=== PATIENT | female | born 1950 | race African-American/Black ===

== ENCOUNTER 2018-07-04 04:41 | Emergency (ER) | payer MEDICARE, MEDICAID ==
[~2018-07-04] VITALS: Ht 167.6 cm; Wt 77.1 kg
[~2018-07-04 04:41] MED LIST: AMLODIPINE BESYL5 MG ORAL; AMPICILLIN TRI500 MG; ASPIRIN EC81 MG; BACTRIM DS TAB1 EAC1 ORAL; CLONAZEPAM2 MG; CLONAZEPAM2 MG PO; CLONIDINE 0.2M0.2 MG; CLONIDINE 0.2M0.2 MG PO; CLONIDINE HCL0.1 MG; DOCUSATE SODIU100 MG; HYDROCODON-ACE1 EA15 ORAL; HYDROCODON-ACE1 EAC8; KEFLEX500 MG ORAL; ZOFRAN4 M1 ORAL
[2018-07-04 04:49] VITALS: BP 187/91
[2018-07-04 04:50] VITALS: BP 187/91
[2018-07-04] MEDS ORDERED: Cephalexin 500mg cap ORAL ONE (05:45)
[2018-07-04] MEDS ORDERED: Bactrim-DS 1 tab ORAL ONE (05:45)
[2018-07-04] MEDS ORDERED: CEPHALEXIN500 MG ORAL (05:50)
[2018-07-04] MEDS ORDERED: BACTRIM DS TAB1 EAC1 ORAL (05:50)
--- NOTE | 2018-07-04 05:50 | Emergency Room Report ---
History of Present Illness General Chief Complaint: Skin Rash/Abscess Source: Patient Present Illness HPI Is a 59-year-old female with history of pacemaker. She was brought in by her friend/neighbor for urinary incontinence. Her neighbor initially came in for an abscess to her buttock because of her when injection. Patient also has a history of abscess to her upper extremity. Patient denies any drug use. Her neighbor however said that they have injected about 1 together in the past. Patient denies using drugs since she was in the service. She said she has a history of dialysis do so her arms or so scarred up and swollen. Patient told triage nurse that she had a headache. She woke up with it. Denies any fever chills but no nausea no vomiting. No other complaint. Allergies: Coded Allergies: NO KNOWN ALLERGIES (Unverified Allergy, 07/20/13) Patient History Past Medical History: see triage record, old chart reviewed, HTN Past Surgical History: pacemaker Pertinent Family History: none Social History: Denies: smoking Last Menstrual Period: na Now: No Immunizations: other Reviewed Nursing Documentation: PMH: Agreed; PSxH: Agreed Nursing Documentation-PMH Past Medical History Deferred: Pt Cognitively Impaired Past Medical History: No Stated History Hx Cardiac Problems: Yes Hx Hypertension: Yes Hx Pacemaker: Yes - jul 2013 Hx Asthma: Yes Hx COPD: No Hx Cancer: No Hx Gastrointestinal Problems: No Hx Neurological Problems: Yes Hx Cerebrovascular Accident: No Hx Transient Ischemic Attacks: No Hx Dementia: Yes Hx Alzheimer's Disease: No Hx Parkinson's Disease: No Hx Meningitis: No Hx Encephalitis: No Hx Seizures: Yes Hx Epilepsy: No Hx Multiple Sclerosis: No Hx Cerebral Palsy: No Hx Amyotrophic Lat Sclerosis: No Hx [place] Syndrome: No Hx Paralysis: No Hx Peripheral Neuropathy: No Hx Spinal Cord Injury: No Hx Head Trauma: No Hx Traumatic Brain Injury: No Hx Concentration Difficulty: Yes Hx Speech Problem: No Hx Tremors: No Hx Vertigo: No Hx Dizziness: Yes Hx Syncope: Yes Hx Headaches: No Hx Aphasia: No Hx Dysphasia: No Hx Numbness: No Hx Weakness: No Hx Fatigue: No Hx Neurologic Surgery: No Hx Brain Shunt: No Review of Systems Eye: Denies: eye pain, blurred vision ENT: Denies: ear pain, nose congestion, throat swelling Respiratory: Denies: cough, shortness of breath Cardiovascular: Denies: chest pain, palpitations Gastrointestinal: Denies: abdominal pain, diarrhea, nausea, vomiting Musculoskeletal: Denies: back pain, joint pain Skin: Denies: rash Neurological: Denies: headache, numbness Endocrine: Denies: increased thirst, increased urine Hematologic/Lymphatic: Denies: easy bruising All Other Systems: negative except mentioned in HPI Physical Exam Vital Signs Date Time Temp Pulse Resp B/P (MAP) Pulse Ox O2 Delivery O2 Flow Rate FiO2 07/04/18 04:45 97.9 88 16 192/90 98 Room Air vitals with high blood pressure Sp02 EP Interpretation: reviewed, normal General Appearance: well appearing, no apparent distress, alert Head: normocephalic, atraumatic Eyes: bilateral eye PERRL, bilateral eye EOMI ENT: hearing grossly normal, normal pharynx Neck: full range of motion, supple, no meningismus Respiratory: chest non-tender, lungs clear, normal breath sounds Cardiovascular #1: regular rate, rhythm, no murmur Gastrointestinal: normal bowel sounds, non tender, no mass, no organomegaly, no bruit, non-distended Musculoskeletal: back normal, gait/station normal, normal range of motion, other - Upper extremities are very indurated. There was a small scab on the right upper extremity has small amount of purulent discharge when pushed on. She has a 2 cm fluctuant area on the left upper extremity. No pain or redness. Her arms and legs are scarred up. Neurologic: alert, oriented x3 Psychiatric: mood/affect normal Skin: warm/dry Procedures Incision and Drainage Incision and Drainage : Consent: Verbal Site: Left upper extremity Blade Size: 11 I & D Procedure: betadine prep, sterile drapes applied, sterile dressing applied Wound Location: upper extremity Anesthesia: 1% Lidocaine Volume Anesthetic (ccs): 2 Patient Tolerated: Well Complications: None Progress I cleaned the left upper extremity with Betadine. Local anesthetic with 1% lidocaine without epinephrine. I made a 2 cm incision. There was moderate amount of pus expressed. Patient tolerated procedure without a problem. Medical Decision Making Diagnostic Impression: Primary Impression: Abscess Additional Impressions: Heroin abuse Hypertension Qualified Codes: I10 - Essential (primary) hypertension ER Course Patient presents with an abscess to her upper extremity. Urine was also sent but I will going put on antibiotics. She does not want to stay. She does not want blood work. I see no evidence of any history of dialysis. Patient claimed that she stopped them last year. This does not make sense since she able to make urine. I suspect that she does have heroin abuse with injection and resulting abscess. We'll put her on antibiotics. Last Vital Signs Date Time Temp Pulse Resp B/P (MAP) Pulse Ox O2 Delivery O2 Flow Rate FiO2 07/04/18 04:45 97.9 88 16 192/90 98 Room Air Status: improved Disposition: HOME, SELF-CARE Condition: Stable Scripts Cephalexin* (KEFLEX*) 500 Mg Capsule 500 MG ORAL TID, #21 CAP Prov: sEtuardo Mak MD 07/04/18 Trimethoprim/Sulfamethoxazole 160/800* (BACTRIM DS TABLET*) 1 Each Tablet 1 TAB ORAL Q12H, #14 TAB 0 Refills Prov: Estuardo Mak MD 07/04/18 Referrals: NOT CHOSEN IPA/,REFERRING (PCP) Patient Instructions: Abscess Additional Instructions: Stop using drugs. Follow-up with your doctor in 7 days. You'll need follow-up on your high blood pressure. Take your medication. Return if symptom worsen. Estuardo Mak MD Jul 04, 2018 05:50
[2018-07-04 05:59] LABS: APPEARANCE,URINE SLIGHTLY CLOUDY; BILIRUBIN, URINE NEGATIVE (NEGATIVE); GLUCOSE, URINE (UA) NEGATIVE (NEGATIVE); KETONES,URINE NEGATIVE (NEGATIVE); LEUKOCYTE ESTERASE ,URINE 3+ (NEGATIVE); NITRITE,URINE NEGATIVE (NEGATIVE); PH,URINE 8 (4.5-8.0); PROTEIN,URINE 1+ (NEGATIVE); UROBILINOGEN,URINE 1 MG/DL (0.0-1.0)
[2018-07-04 06:01] VITALS: BP 172/82
[2018-07-04 06:21] LABS: COLOR,URINE YELLOW
== END 2018-07-04 06:01 | disposition home or self-care (01) ==
LOC: EMR 05:18
DX: L02.414 Cutaneous abscess of left upper limb (principal); F11.10 Opioid abuse, uncomplicated; I10 Essential (primary) hypertension; Z95.0 Presence of cardiac pacemaker; J45.909 Unspecified asthma, uncomplicated
CPT/HCPCS: 10060; 81003; 87070; 87086; 87205; 99283